=== PATIENT | female | born 1925 | race Caucasian/White ===

== ENCOUNTER 2016-05-14 13:38 | Outpatient (RCR) | payer MEDICARE, MEDICAID | END 2016-06-10 | disposition home or self-care (01) | LOC: WCC 13:38 | DX: L97.929 Non-pressure chronic ulcer of unspecified part of left lower leg with unspecified severity (principal); L97.813 Non-pressure chronic ulcer of other part of right lower leg with necrosis of muscle; R60.0 Localized edema; Z88.0 Allergy status to penicillin; Z90.49 Acquired absence of other specified parts of digestive tract; Z86.73 Personal history of transient ischemic attack (TIA), and cerebral infarction without residual deficits; I10 Essential (primary) hypertension; N18.9 Chronic kidney disease, unspecified; M06.9 Rheumatoid arthritis, unspecified | CPT/HCPCS: 11043; 11046 ==

== ENCOUNTER 2016-12-24 13:35 | Outpatient (RCR) | payer MEDICARE, MEDICAID | END 2017-01-08 | disposition home or self-care (01) | LOC: WCC 13:35 | DX: L97.812 Non-pressure chronic ulcer of other part of right lower leg with fat layer exposed (principal); I88.1 Chronic lymphadenitis, except mesenteric; Z88.0 Allergy status to penicillin; M06.9 Rheumatoid arthritis, unspecified; Z86.73 Personal history of transient ischemic attack (TIA), and cerebral infarction without residual deficits; I25.2 Old myocardial infarction; I13.10 Hypertensive heart and chronic kidney disease without heart failure, with stage 1 through stage 4 chronic kidney disease, or unspecified chronic kidney disease; N18.9 Chronic kidney disease, unspecified; Z79.01 Long term (current) use of anticoagulants; Z90.49 Acquired absence of other specified parts of digestive tract | CPT/HCPCS: 11042; 11043; 11045; 11046 ==

== ENCOUNTER 2017-01-14 13:41 | Outpatient (RCR) | payer MEDICARE, MEDICAID | END 2017-02-07 | disposition home or self-care (01) | LOC: WCC 13:41 | DX: L97.812 Non-pressure chronic ulcer of other part of right lower leg with fat layer exposed (principal); I88.1 Chronic lymphadenitis, except mesenteric; Z90.49 Acquired absence of other specified parts of digestive tract; I13.10 Hypertensive heart and chronic kidney disease without heart failure, with stage 1 through stage 4 chronic kidney disease, or unspecified chronic kidney disease; N18.9 Chronic kidney disease, unspecified; I25.2 Old myocardial infarction; Z86.73 Personal history of transient ischemic attack (TIA), and cerebral infarction without residual deficits; Z79.01 Long term (current) use of anticoagulants | CPT/HCPCS: 29580; G0463 ==